=== PATIENT | female | born 1960 | race Caucasian/White ===

== ENCOUNTER 2023-10-28 12:31 | Outpatient (CLI) | payer BC, OTHER | END 2023-10-28 12:32 | disposition home or self-care (01) | LOC: CSHWCC 12:31 | PROVIDERS: ATTEND Physician Assistant | DX: L89.154 Pressure ulcer of sacral region, stage 4 (principal); L89.303 Pressure ulcer of unspecified buttock, stage 3 | CPT/HCPCS: 97607 ==

== ENCOUNTER 2023-11-02 09:25 | Outpatient (CLI) | payer BC | END 2023-11-02 09:26 | disposition home or self-care (01) | LOC: CSHWCC 09:25 | PROVIDERS: ATTEND Nurse Practitioner Family | DX: L89.324 Pressure ulcer of left buttock, stage 4 (principal); L89.313 Pressure ulcer of right buttock, stage 3 | CPT/HCPCS: 11042; 87070; 87077; 87186; 87205; 97597 ==

== ENCOUNTER 2023-11-11 10:30 | Outpatient (CLI) | payer BC | END 2023-11-11 10:31 | disposition home or self-care (01) | LOC: CSHWCC 10:30 | PROVIDERS: ATTEND Nurse Practitioner Family | DX: E11.622 Type 2 diabetes mellitus with other skin ulcer (principal); L89.324 Pressure ulcer of left buttock, stage 4; L89.313 Pressure ulcer of right buttock, stage 3; L89.503 Pressure ulcer of unspecified ankle, stage 3 | CPT/HCPCS: 11042 ==

== ENCOUNTER 2023-11-18 13:22 | Outpatient (CLI) | payer BC | END 2023-11-18 13:23 | disposition home or self-care (01) | LOC: CSHWCC 13:22 | PROVIDERS: ATTEND Nurse Practitioner Family | DX: E11.622 Type 2 diabetes mellitus with other skin ulcer (principal); L89.313 Pressure ulcer of right buttock, stage 3; L89.324 Pressure ulcer of left buttock, stage 4; L89.513 Pressure ulcer of right ankle, stage 3; I50.32 Chronic diastolic (congestive) heart failure | CPT/HCPCS: 11042; 11043 ==

== ENCOUNTER 2023-11-23 13:09 | Outpatient (CLI) | payer BC | END 2023-11-23 13:10 | disposition home or self-care (01) | LOC: CSHWCC 13:09 | PROVIDERS: ATTEND Nurse Practitioner Family | DX: L89.324 Pressure ulcer of left buttock, stage 4 (principal); L89.313 Pressure ulcer of right buttock, stage 3; L89.513 Pressure ulcer of right ankle, stage 3; E11.622 Type 2 diabetes mellitus with other skin ulcer; I50.32 Chronic diastolic (congestive) heart failure; L98.499 Non-pressure chronic ulcer of skin of other sites with unspecified severity | CPT/HCPCS: 11042; 11043; 99214; G0463 ==

== ENCOUNTER 2023-12-04 13:34 | Outpatient (CLI) | payer BC | END 2023-12-04 13:35 | disposition home or self-care (01) | LOC: CSHWCC 13:34 | PROVIDERS: ATTEND Nurse Practitioner Family | DX: L89.324 Pressure ulcer of left buttock, stage 4 (principal); L89.313 Pressure ulcer of right buttock, stage 3; L89.513 Pressure ulcer of right ankle, stage 3; E11.622 Type 2 diabetes mellitus with other skin ulcer; I50.32 Chronic diastolic (congestive) heart failure | CPT/HCPCS: 11043; 97597; 97605 ==

== ENCOUNTER 2024-03-16 10:15 | Outpatient (CLI) | payer BC | END 2024-03-16 10:16 | disposition home or self-care (01) | LOC: CSHWCC 10:15 | PROVIDERS: ATTEND Nurse Practitioner Family | DX: T81.32XD Disruption of internal operation (surgical) wound, not elsewhere classified, subsequent encounter (principal); L89.313 Pressure ulcer of right buttock, stage 3; L89.324 Pressure ulcer of left buttock, stage 4; E11.622 Type 2 diabetes mellitus with other skin ulcer; I50.32 Chronic diastolic (congestive) heart failure; M06.9 Rheumatoid arthritis, unspecified | CPT/HCPCS: 11042; 11045; 97606 ==

== ENCOUNTER 2024-03-28 10:43 | Outpatient (CLI) | payer BC | END 2024-03-28 10:44 | disposition home or self-care (01) | LOC: CSHWCC 10:43 | PROVIDERS: ATTEND Nurse Practitioner Family | DX: T81.32XD Disruption of internal operation (surgical) wound, not elsewhere classified, subsequent encounter (principal); L89.313 Pressure ulcer of right buttock, stage 3; L89.324 Pressure ulcer of left buttock, stage 4; E11.622 Type 2 diabetes mellitus with other skin ulcer; L98.499 Non-pressure chronic ulcer of skin of other sites with unspecified severity; M06.9 Rheumatoid arthritis, unspecified; I50.32 Chronic diastolic (congestive) heart failure ==

== ENCOUNTER 2024-04-11 10:58 | Outpatient (CLI) | payer BC | END 2024-04-11 10:59 | disposition home or self-care (01) | LOC: CSHWCC 10:58 | PROVIDERS: ATTEND Nurse Practitioner Family | DX: T81.32XD Disruption of internal operation (surgical) wound, not elsewhere classified, subsequent encounter (principal); L89.313 Pressure ulcer of right buttock, stage 3; L89.324 Pressure ulcer of left buttock, stage 4; E11.622 Type 2 diabetes mellitus with other skin ulcer; L98.499 Non-pressure chronic ulcer of skin of other sites with unspecified severity; I50.32 Chronic diastolic (congestive) heart failure; M06.9 Rheumatoid arthritis, unspecified | CPT/HCPCS: 11042; 97605 ==

== ENCOUNTER 2024-04-18 10:51 | Outpatient (CLI) | payer BC | END 2024-04-18 10:52 | disposition home or self-care (01) | LOC: CSHWCC 10:51 | PROVIDERS: ATTEND Nurse Practitioner Family | DX: L89.313 Pressure ulcer of right buttock, stage 3 (principal); L89.324 Pressure ulcer of left buttock, stage 4; E11.622 Type 2 diabetes mellitus with other skin ulcer; T81.32XD Disruption of internal operation (surgical) wound, not elsewhere classified, subsequent encounter; I50.32 Chronic diastolic (congestive) heart failure; M06.9 Rheumatoid arthritis, unspecified | CPT/HCPCS: 11042; 11045; 97605 ==

== ENCOUNTER 2024-04-25 10:53 | Outpatient (CLI) | payer BC | END 2024-04-25 10:54 | disposition home or self-care (01) | LOC: CSHWCC 10:53 | PROVIDERS: ATTEND Nurse Practitioner Family | DX: T81.32XD Disruption of internal operation (surgical) wound, not elsewhere classified, subsequent encounter (principal); L89.313 Pressure ulcer of right buttock, stage 3; L89.324 Pressure ulcer of left buttock, stage 4; E11.622 Type 2 diabetes mellitus with other skin ulcer; L98.499 Non-pressure chronic ulcer of skin of other sites with unspecified severity; I50.32 Chronic diastolic (congestive) heart failure; M06.9 Rheumatoid arthritis, unspecified | CPT/HCPCS: 11042; 11045 ==

== ENCOUNTER 2024-06-20 10:12 | Outpatient (CLI) | payer BC | END 2024-06-20 10:13 | disposition home or self-care (01) | LOC: CSHWCC 10:12 | PROVIDERS: ATTEND Nurse Practitioner Family | DX: L89.324 Pressure ulcer of left buttock, stage 4 (principal); E11.622 Type 2 diabetes mellitus with other skin ulcer; L97.122 Non-pressure chronic ulcer of left thigh with fat layer exposed; M06.9 Rheumatoid arthritis, unspecified; I50.32 Chronic diastolic (congestive) heart failure | CPT/HCPCS: 11042; 11045 ==

== ENCOUNTER 2024-06-27 14:27 | Outpatient (CLI) | payer BC | END 2024-06-27 14:28 | disposition home or self-care (01) | LOC: CSHWCC 14:27 | PROVIDERS: ATTEND Nurse Practitioner Family | DX: L89.324 Pressure ulcer of left buttock, stage 4 (principal); E11.622 Type 2 diabetes mellitus with other skin ulcer; L97.122 Non-pressure chronic ulcer of left thigh with fat layer exposed; M06.9 Rheumatoid arthritis, unspecified; I50.32 Chronic diastolic (congestive) heart failure | CPT/HCPCS: 11042; 11045 ==